=== PATIENT | female | born 1985 | race Caucasian/White ===

== ENCOUNTER 2017-08-01 16:32 | Emergency (ER) | payer SELFPAY ==
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
[2017-08-01] MEDS ORDERED: CYCL-319 PO (19:57)
[2017-08-01] MEDS ORDERED: IBUP-1542 PO (19:57)
[2017-08-01] MEDS ORDERED: IBUPROFEN 600 MG TAB PO ONE (20:00)
== END 2017-08-01 20:15 | disposition home or self-care (01) ==
LOC: FTE 16:32
DX: S16.1XXA Strain of muscle, fascia and tendon at neck level, initial encounter (principal); S09.90XA Unspecified injury of head, initial encounter; S49.92XA Unspecified injury of left shoulder and upper arm, initial encounter; S29.9XXA Unspecified injury of thorax, initial encounter; V43.52XA Car driver injured in collision with other type car in traffic accident, initial encounter
CPT/HCPCS: 99282